=== PATIENT | female | born 1995 | race Caucasian/White ===

== ENCOUNTER → 2020-04-19 | Emergency (ER) | payer OTHER, BC ==
[~2020-04-19] MED LIST: AGM875T PO; AMOX500C2 PO; AMPH30TA2 PO; BENZ0.5T3 PO; BIRTH CONTROL PO; BNZT1T PO; CETI10CA PO; ESCI20TA2 PO; HYDR1TAB8 OP; LTRS15C TOP; NITR-65 PO; PRD10T PO; QTP100T PO; QTP200T PO; TRAZ150T42 PO; TRM50T PO; ZPR20C PO; trinessa
--- NOTE | 2020-04-19 18:57 | NUR ---
Pt reported to registration that pt would not be staying if boyfriend could not come into ED.
== END | disposition left against medical advice (07) ==
LOC: EDUNIT# 18:51 → ER 18:52
DX: R31.9 Hematuria, unspecified (principal); M54.9 Dorsalgia, unspecified

== ENCOUNTER 2020-05-28 00:48 | Emergency (ER) | payer BC, OTHER ==
[~2020-05-28] VITALS: Ht 165 cm; Wt 84.1 kg
[2020-05-28 00:54] VITALS: BP 130/64
[2020-05-28] MEDS ORDERED: ONDA8TAB13 (00:59)
[2020-05-28 01:13] LABS: BILIRUBIN,URINE NEGATIVE (NEGATIVE); CLARITY,URINE SL CLOUDY; COLOR,URINE YELLOW; GLUCOSE, URINE (UA) NEGATIVE (NEGATIVE); KETONES,URINE NEGATIVE (NEGATIVE); LEUKOCYTE ESTERASE ,URINE NEGATIVE (NEGATIVE); NITRITE,URINE NEGATIVE (NEGATIVE); PROTEIN,URINE NEGATIVE (NEGATIVE)
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
[2020-05-28] MEDS ORDERED: ACETAMINOPHEN 500 MG TAB (TYLENOL) PO ONE (01:15)
[2020-05-28 01:19] LABS: BASOPHILS # (AUTO) 0.1 10^3/uL (0.0-0.1); BASOPHILS % (AUTO) 0 % (0-10); EOSINOPHILS # (AUTO) 0.3 10^3/uL (0.0-0.3); EOSINOPHILS % (AUTO) 2 % (0-10); HEMATOCRIT 35 % (35-52); LYMPHOCYTES # (AUTO) 2.6 X 10^3 (1.0-4.0); LYMPHOCYTES % (AUTO) 19 % (12-44); MEAN CORPUSCULAR HEMOGLOBIN 31 PG (25-34); MEAN CORPUSCULAR HGB CONC 34 G/DL (32-36); MEAN CORPUSCULAR VOLUME 90 FL (80-99); MEAN PLATELET VOLUME 10.2 FL (7.4-10.4); MONOCYTES # (AUTO) 0.9 X 10^3 (0.0-1.0); MONOCYTES % (AUTO) 7 % (0-12); NEUTROPHILS # (AUTO) 9.8 X 10^3 (1.8-7.8); NEUTROPHILS % (AUTO) 71 % (42-75); PLATELET COUNT 277 10^3/uL (130-400); RED CELL DISTRIBUTION WIDTH 12.6 % (10.0-14.5); WHITE BLOOD COUNT 13.7 10^3/uL (4.3-11.0)
[2020-05-28 01:27] LABS: BACTERIA,URINE FEW /HPF; RBC,URINE RARE /HPF; SQUAMOUS EPITHELIAL CELL,UR 25-50 /HPF; WBC,URINE RARE /HPF
[2020-05-28 01:36] LABS: ALANINE AMINOTRANSFERASE 20 U/L (0-55); ALBUMIN 3.7 GM/DL (3.2-4.5); ALKALINE PHOSPHATASE 59 U/L (40-136); BILIRUBIN,TOTAL 0.2 MG/DL (0.1-1.0); BUN/CREATININE RATIO 15; CALCIUM 8.7 MG/DL (8.5-10.1); CARBON DIOXIDE 24 MMOL/L (21-32); CHLORIDE 102 MMOL/L (98-107); CREATININE SERUM 0.66 MG/DL (0.60-1.30); GFR ESTIMATED > 60; GLUCOSE 88 MG/DL (70-105); POTASSIUM 3.6 MMOL/L (3.6-5.0); SODIUM 137 MMOL/L (135-145); TOTAL PROTEIN 6.6 GM/DL (6.4-8.2)
== END 2020-05-28 02:18 | disposition home or self-care (01) ==
LOC: EDUNIT# 00:48 → ER 00:52
DX: O26.891 Other specified pregnancy related conditions, first trimester (principal); R10.2 Pelvic and perineal pain; Z3A.08 8 weeks gestation of pregnancy
CPT/HCPCS: 36415; 80053; 81000; 84702; 84703; 85025

== ENCOUNTER 2020-12-22 19:54 | Outpatient (CLI) | payer BC, MEDICAID ==
[~2020-12-22] VITALS: Ht 165.1 cm; Wt 115.6 kg
[~2020-12-22 19:54] MED LIST changes: +ONDA8TAB13
[2020-12-22 20:12] VITALS: BP 140/95
[2020-12-22 20:27] LABS: BILIRUBIN,URINE NEGATIVE (NEGATIVE); CLARITY,URINE CLEAR; COLOR,URINE YELLOW; GLUCOSE, URINE (UA) NEGATIVE (NEGATIVE); KETONES,URINE NEGATIVE (NEGATIVE); LEUKOCYTE ESTERASE ,URINE NEGATIVE (NEGATIVE); NITRITE,URINE NEGATIVE (NEGATIVE); PROTEIN,URINE 3+ (NEGATIVE)
[2020-12-22 20:38] VITALS: BP 131/68
[2020-12-22 20:41] LABS: BACTERIA,URINE NEGATIVE /HPF; SQUAMOUS EPITHELIAL CELL,UR 25-50 /HPF
[2020-12-22 20:42] LABS: AMPHETAMINE SCREEN, URINE POSITIVE (NEGATIVE); BARBITURATE SCREEN URINE NEGATIVE (NEGATIVE); BENZODIAZEPINES SCREEN URINE NEGATIVE (NEGATIVE); CANNABINOID SCREEN, URINE NEGATIVE (NEGATIVE); COCAINE SCREEN URINE NEGATIVE (NEGATIVE); METHADONE STAT NEGATIVE (NEGATIVE); METHAMPHETAMINE SCREEN URINE S POSITIVE (NEGATIVE); OPIATE SCREEN URINE NEGATIVE (NEGATIVE); OXYCODONE STAT NEGATIVE (NEGATIVE); PROPOXYPHENE STAT NEGATIVE (NEGATIVE); TRICYCLIC ANTIDEPRESSANTS SCRE NEGATIVE (NEGATIVE)
[2020-12-22] MEDS ORDERED: FERR-84 PO (20:49)
[2020-12-22] MEDS ORDERED: PREN-142 PO (20:49)
--- NOTE | 2020-12-23 07:45 | Physician Query-Final Dx ---
CHARU DENNISON 12/23/20 0745: Clinic Account Progress/Dx Physician Query: Please give diagnosis Please include # weeks gestation Date of Service Dec 22, 2020 at 19:54 REZA WHITE MD 12/23/20 2208: Clinic Account Progress/Dx DIAGNOSIS: Diagnosis 1. IUP at 38 weeks, non labor 2. Membranes intact CHARU DENNISON Dec 23, 2020 07:45 REZA WHITE MD Dec 23, 2020 22:08
== END 2020-12-22 21:18 | disposition home or self-care (01) ==
LOC: WSo 19:54 → LDRP 19:54 → WSo 21:18
PROVIDERS: ATTEND Family Medicine
DX: O41.8X30 Other specified disorders of amniotic fluid and membranes, third trimester, not applicable or unspecified (principal); Z3A.38 38 weeks gestation of pregnancy
CPT/HCPCS: 80306; 81000

== ENCOUNTER 2020-12-27 02:17 | Inpatient (IN) | payer BC, MEDICAID ==
[~2020-12-27] VITALS: Ht 165.1 cm; Wt 116.5 kg
[2020-12-27] VITALS (38 sets, daily range): BP systolic 99–198; BP diastolic 51–105
[~2020-12-27 02:17] MED LIST changes: +FERR-84 PO; +PREN-142 PO
[2020-12-27 02:42] LABS: BILIRUBIN,URINE 1+ (NEGATIVE); CLARITY,URINE CLOUDY; COLOR,URINE ORANGE; GLUCOSE, URINE (UA) NEGATIVE (NEGATIVE); KETONES,URINE NEGATIVE (NEGATIVE); LEUKOCYTE ESTERASE ,URINE NEGATIVE (NEGATIVE); NITRITE,URINE NEGATIVE (NEGATIVE); PROTEIN,URINE 3+ (NEGATIVE)
[2020-12-27 02:53] LABS: BACTERIA,URINE LARGE /HPF
[2020-12-27 02:54] LABS: AMPHETAMINE SCREEN, URINE POSITIVE (NEGATIVE); BARBITURATE SCREEN URINE NEGATIVE (NEGATIVE); BENZODIAZEPINES SCREEN URINE NEGATIVE (NEGATIVE); CANNABINOID SCREEN, URINE NEGATIVE (NEGATIVE); COCAINE SCREEN URINE NEGATIVE (NEGATIVE); METHADONE STAT NEGATIVE (NEGATIVE); METHAMPHETAMINE SCREEN URINE S POSITIVE (NEGATIVE); OPIATE SCREEN URINE NEGATIVE (NEGATIVE); OXYCODONE STAT NEGATIVE (NEGATIVE); PROPOXYPHENE STAT NEGATIVE (NEGATIVE); TRICYCLIC ANTIDEPRESSANTS SCRE NEGATIVE (NEGATIVE)
[2020-12-27] MEDS ORDERED: LACTATED RINGERS 1,000 ML IV ONE ×2 (03:15→09:45)
[2020-12-27 04:07] LABS: BASOPHILS # (AUTO) 0.1 10^3/uL (0.0-0.1); BASOPHILS % (AUTO) 1 % (0-10); EOSINOPHILS # (AUTO) 0.2 10^3/uL (0.0-0.3); EOSINOPHILS % (AUTO) 2 % (0-10); HEMATOCRIT 34 % (35-52); HEMOGLOBIN 10.9 g/dL (11.5-16.0); LYMPHOCYTES % (AUTO) 18 % (12-44); MEAN CORPUSCULAR HEMOGLOBIN 28 pg (25-34); MEAN CORPUSCULAR HGB CONC 33 g/dL (32-36); MEAN CORPUSCULAR VOLUME 87 fL (80-99); MEAN PLATELET VOLUME 11.8 fL (9.0-12.2); MONOCYTES # (AUTO) 0.9 10^3/uL (0.0-1.0); MONOCYTES % (AUTO) 8 % (0-12); NEUTROPHILS # (AUTO) 7.6 10^3/uL (1.8-7.8); NEUTROPHILS % (AUTO) 70 % (42-75); PLATELET COUNT 253 10^3/uL (130-400); WHITE BLOOD COUNT 10.9 10^3/uL (4.3-11.0)
[2020-12-27 04:18] LABS: ALBUMIN 2.5 GM/DL (3.2-4.5); CHLORIDE 108 MMOL/L (98-107); POTASSIUM 3.8 MMOL/L (3.6-5.0); SODIUM 137 MMOL/L (135-145)
[2020-12-27 04:19] LABS: CALCIUM 8.1 MG/DL (8.5-10.1)
[2020-12-27 04:20] LABS: GLUCOSE 112 MG/DL (70-105); TOTAL PROTEIN 5.1 GM/DL (6.4-8.2)
[2020-12-27 04:21] LABS: CARBON DIOXIDE 20 MMOL/L (21-32)
[2020-12-27 04:22] LABS: BILIRUBIN,TOTAL 0.1 MG/DL (0.1-1.0)
[2020-12-27 04:24] LABS: ALKALINE PHOSPHATASE 243 U/L (40-136); CREATININE SERUM 0.68 MG/DL (0.60-1.30); GFR ESTIMATED > 60
[2020-12-27 04:25] LABS: BUN/CREATININE RATIO 16
[2020-12-27 04:27] LABS: ALANINE AMINOTRANSFERASE 19 U/L (0-55); URIC ACID 5.9 MG/DL (2.6-7.2)
[2020-12-27] MEDS ORDERED: D5 LR IV SOLUTION 1,000 ML IV ONE (04:45)
[2020-12-27] MEDS ORDERED: MINERAL OIL CONCENTRATE 99.9% 15 ML UDC TOP PRN (05:00)
[2020-12-27] MEDS ORDERED: D5 LR IV SOLUTION 1,000 ML IV SCH ×2 (05:00→14:15)
[2020-12-27] MEDS ORDERED: TERBUTALINE INJ 1 MG/ML (BRETHINE) AMP SC PRN (05:00)
[2020-12-27] MEDS ORDERED: fentaNYL INJ 100 MCG/2 ML AMP ONE ×3 (05:05→10:25)
[2020-12-27] MEDS ORDERED: fentaNYL INJ 100 MCG/2 ML AMP IVP PRN ×2 (05:15→14:15)
[2020-12-27] MEDS ORDERED: CATHETER FLUSH 10 ML SYR IV SCH (06:00)
[2020-12-27] MEDS ORDERED: MAGNESIUM 2 GM/50 ML IVPB 0 ML IV ONE (06:18)
[2020-12-27] MEDS ORDERED: MAGNESIUM 4 GM/100 ML IVPB 100 ML IV ONE (06:18)
[2020-12-27] MEDS ORDERED: MAGNESIUM SULFATE DRIP 500 ML IV ONE (06:21)
[2020-12-27] MEDS ORDERED: MAGNESIUM 4 GM/100 ML IVPB 100 ML IV SCH (06:30)
[2020-12-27] MEDS ORDERED: CALCIUM GLUC. 10% 4.65 MEQ/10 ML VIAL IV PRN (06:30)
[2020-12-27] MEDS ORDERED: MAGNESIUM SULFATE DRIP 500 ML IV SCH ×2 (07:00→14:15)
[2020-12-27] MEDS: D5 LR IV SOLUTION 1,000 ML IV SCH ×2 (07:18→16:20)
[2020-12-27] MEDS ORDERED: fentaNYL 2 mcg/ml BUPIVA 0.125 100 ML ONE (09:02)
[2020-12-27] MEDS ORDERED: BUPIVACAINE 0.25% 30 ML (SENSORCAINE) VIAL ONE (09:36)
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
[2020-12-27] MEDS ORDERED: CATHETER FLUSH 10 ML SYR IV PRN (09:45)
[2020-12-27] MEDS ORDERED: fentaNYL 2 mcg/ml BUPIVA 0.125 100 ML IV SCH (09:45)
[2020-12-27] MEDS ORDERED: NALOXONE 0.4 MG/ML 1 ML (NARCAN) VIAL IV PRN (09:45)
[2020-12-27] MEDS ORDERED: METOCLOPRAMIDE INJ 10 MG/2 ML (REGLAN) ONE (10:36)
[2020-12-27] MEDS ORDERED: FAMOTIDINE 20MG/2ML IV (PEPCID) ONE (10:36)
[2020-12-27] MEDS ORDERED: CITRIC ACID/SOB CIT (BICITRA) 30 ML UDC ONE (10:36)
[2020-12-27] MEDS: LACTATED RINGERS 1,000 ML IV PRN ×2 (10:51→16:15)
[2020-12-27] MEDS ORDERED: metroNIDAZOLE 500MG/100ML IVPB 100 ML ONE (10:53)
[2020-12-27] MEDS ORDERED: ceFAZolin 2 GM IV Premixed 50 ML ONE (10:54)
[2020-12-27] MEDS ORDERED: CITRIC ACID/SOB CIT (BICITRA) 30 ML UDC PO ONE (11:00)
[2020-12-27] MEDS ORDERED: FAMOTIDINE 20MG/2ML IV (PEPCID) IV ONE (11:00)
[2020-12-27] MEDS ORDERED: METOCLOPRAMIDE INJ 10 MG/2 ML (REGLAN) IV ONE (11:00)
[2020-12-27] MEDS ORDERED: OXYTOCIN PRE-MIX DRIP 1,000 ML IV ONE (11:03)
[2020-12-27] MEDS ORDERED: ONDANSETRON 4 MG/2 ML (SDV) Z0FRAN ONE (11:49)
[2020-12-27] MEDS ORDERED: HYDROmorphone 2 MG/ML VIAL (DILAUDID) ONE (11:49)
[2020-12-27] MEDS ORDERED: ONDANSETRON 4 MG/2 ML (SDV) Z0FRAN IVP PRN ×2 (12:45→14:15)
[2020-12-27] MEDS ORDERED: KETOROLAC 30 MG/ML VIAL IVP ONE (12:45)
[2020-12-27] MEDS ORDERED: HYDROmorphone 2 MG/ML VIAL (DILAUDID) IV ONE (12:45)
[2020-12-27] MEDS ORDERED: MEASLES,MUMPS,RUBELLA 1 EA INJ SC ONE (14:15)
[2020-12-27] MEDS ORDERED: TETANUS,DIPTH,PERTUSS P/F (BOOSTRIX) 0.5 ML VIAL IM ONE (14:15)
[2020-12-27] MEDS ORDERED: OXYTOCIN PRE-MIX DRIP 500 ML IV SCH (14:15)
[2020-12-27] MEDS: oxyCODONE/APAP 10/325MG (PERCOCET 10) TABLET PO PRN (16:15)
--- NOTE | 2020-12-27 17:01 | OPERATIVE REPORT ---
DATE OF SERVICE: 12/27/2020 PREOPERATIVE DIAGNOSES: Term at 38 and 6/7 weeks' gestation with severe preeclampsia, intolerance of labor and history of drug abuse. POSTOPERATIVE DIAGNOSES: Term at 38 and 6/7 weeks' gestation with severe preeclampsia, intolerance of labor and history of drug abuse. OPERATIVE PROCEDURE: Primary low transverse delivery of viable male infant with Apgars of 8 and 9 at 1 and 5 minutes respectively, weight of 6 pounds 5 ounces. time of 11:35 and a cord blood pH of 7.11. OPERATIVE DESCRIPTION: With the patient in the supine position under satisfactory spinal analgesia, the patient was prepped and draped in the usual fashion for abdominal surgery. Varela catheter was placed in the urinary bladder. A Pfannenstiel incision was made through the skin of the scalpel, the patient's abdomen was entered in the usual manner. Bladder retractor placed in position, clean scalpel used to make a 4 cm hysterotomy incision transversely across the lower uterine segment that was extended by blunt dissection as well. Solis forceps were applied to facilitate delivery of a viable male . Infant had Apgars and stats as noted above. The infant was bulb suctioned on delivery of the head and again on completion of delivery. The umbilical cord was doubly clamped and the infant passed to the pediatric nurse in attendance for delivery. Cord bloods were obtained. Placenta delivered spontaneously Alcantar. It was normal with a 3-vessel cord. The uterus was exteriorized and interior wiped clean with a wet laparotomy sponge. Uterine incision closed with running locked suture of 2-0 Vicryl. Hemostasis was complete. The uterus was returned to abdominal cavity. All blood clot and debris removed from the abdominal cavity. Sponge and needle counts correct, hemostasis assured. The anterior parietal peritoneum was closed with running suture of 2-0 Vicryl. Rectus muscles were closed with that suture as well. The rectus fascia was closed with 2-0 Vicryl, subcutaneous tissue was closed with 2-0 Vicryl and the skin was stapled. Sponge and needle counts were correct on completion of procedure. Estimated blood loss was around 400 mL. The patient tolerated the procedure well and was transferred to the recovery room in stable condition. The infant had been taken stable to the full term nursery under the care of the pediatric nurse and Dr. Shetty, the investment professional. Job ID: [id number] DocumentID: [id number] Dictated Date: 12/27/2020 12:33:10 Billet Examiner Date: 12/27/2020 16:59:55 Dictated By: EMILY CASILLAS MD
[2020-12-27 18:22] LABS: BASOPHILS # (AUTO) 0.1 10^3/uL (0.0-0.1); BASOPHILS % (AUTO) 0 % (0-10); EOSINOPHILS # (AUTO) 0.2 10^3/uL (0.0-0.3); EOSINOPHILS % (AUTO) 1 % (0-10); HEMATOCRIT 36 % (35-52); HEMOGLOBIN 11.6 g/dL (11.5-16.0); LYMPHOCYTES # (AUTO) 1.6 10^3/uL (1.0-4.0); LYMPHOCYTES % (AUTO) 10 % (12-44); MEAN CORPUSCULAR HEMOGLOBIN 28 pg (25-34); MEAN CORPUSCULAR HGB CONC 32 g/dL (32-36); MEAN CORPUSCULAR VOLUME 87 fL (80-99); MEAN PLATELET VOLUME 11.6 fL (9.0-12.2); MONOCYTES % (AUTO) 6 % (0-12); NEUTROPHILS # (AUTO) 14.1 10^3/uL (1.8-7.8); NEUTROPHILS % (AUTO) 83 % (42-75); PLATELET COUNT 255 10^3/uL (130-400); WHITE BLOOD COUNT 17.1 10^3/uL (4.3-11.0)
[2020-12-27 18:33] LABS: ALBUMIN 2.3 GM/DL (3.2-4.5); CHLORIDE 108 MMOL/L (98-107); SODIUM 137 MMOL/L (135-145)
[2020-12-27 18:35] LABS: GLUCOSE 112 MG/DL (70-105)
[2020-12-27 18:36] LABS: TOTAL PROTEIN 4.8 GM/DL (6.4-8.2)
[2020-12-27 18:37] LABS: CARBON DIOXIDE 21 MMOL/L (21-32)
[2020-12-27 18:38] LABS: BILIRUBIN,TOTAL 0.2 MG/DL (0.1-1.0); NEUTROPHILS % (MANUAL) 88 %
[2020-12-27 18:39] LABS: ALKALINE PHOSPHATASE 230 U/L (40-136); BAND NEUTROPHILS 4 %; CREATININE SERUM 0.61 MG/DL (0.60-1.30); GFR ESTIMATED > 60; LYMPHOCYTES % (MANUAL) 7 %; MONOCYTES % (MANUAL) 1 %; RBC MORPH NORMAL
[2020-12-27 18:40] LABS: BUN/CREATININE RATIO 11
[2020-12-27 18:42] LABS: ALANINE AMINOTRANSFERASE 18 U/L (0-55)
[2020-12-27] MEDS: KETOROLAC 30 MG/ML VIAL IVP SCH ×2 (20:15→21:15)
[2020-12-27] MEDS ORDERED: DOCUSATE SODIUM 100 MG (COLACE) CAP PO SCH (21:00)
[2020-12-27] MEDS: DOCUSATE SODIUM 100 MG (COLACE) CAP PO SCH (21:20)
[2020-12-28 00:20] VITALS: BP 154/90
[2020-12-28] MEDS: oxyCODONE/APAP 10/325MG (PERCOCET 10) TABLET PO PRN ×3 (00:26→21:40)
[2020-12-28 03:55] VITALS: BP 153/80
[2020-12-28] MEDS: KETOROLAC 30 MG/ML VIAL IVP SCH (03:56)
--- NOTE | 2020-12-28 06:41 | Progress Note ---
Standard Progress Note Progress Notes/Assess & Plan Date Seen by a Provider: Dec 28, 2020 Time Seen by a Provider: 06:40 Progress/Assessment & Plan This patient is without complaint. She is ambulating, voiding, tolerating oral intake well and has good pain control. Vital Signs Date Time Temp Pulse Resp B/P (MAP) Pulse Ox O2 Delivery O2 Flow Rate FiO2 12/28/20 03:55 36.5 79 153/80 (104) 99 Room Air 12/28/20 00:20 93 154/90 (111) 99 Room Air 12/27/20 23:58 36.6 93 18 160/105 (123) 100 Room Air 12/27/20 21:00 98 Room Air 12/27/20 20:33 36.6 104 20 135/85 (102) 98 Room Air 12/27/20 18:00 36.7 105 18 149/90 (109) 100 Room Air 12/27/20 17:00 89 18 153/90 (111) 98 Room Air 12/27/20 16:00 82 18 151/89 (109) 98 Room Air 12/27/20 15:00 80 18 143/85 (104) Room Air 12/27/20 14:00 67 16 143/95 (111) Room Air 12/27/20 13:49 72 16 141/87 (105) Room Air 12/27/20 13:25 36.4 14 115/75 (88) 94 Room Air 12/27/20 13:25 36.1 63 18 151/81 (104) 97 Room Air 12/27/20 13:25 Room Air 12/27/20 13:20 14 115/75 (88) 94 Room Air 12/27/20 13:15 Room Air 12/27/20 13:10 14 119/91 (100) 99 Room Air 12/27/20 13:00 16 121/75 (90) 99 Room Air 12/27/20 13:00 Room Air 12/27/20 12:50 18 116/71 (86) 99 Room Air 12/27/20 12:45 Room Air 12/27/20 12:40 22 99/60 (73) 98 Room Air 12/27/20 12:31 36.2 16 112/51 (71) 99 Room Air 12/27/20 12:31 Room Air 12/27/20 10:55 90 18 151/74 (99) Room Air 12/27/20 10:45 36.2 96 18 138/75 (96) Room Air 12/27/20 10:25 96 18 151/81 (104) Room Air 12/27/20 10:15 92 18 144/74 (97) Room Air 12/27/20 10:00 117 18 198/89 (125) 100 Room Air 12/27/20 09:40 83 18 173/79 (110) 98 Room Air 12/27/20 09:25 75 18 182/84 (116) 97 Room Air 12/27/20 09:10 90 18 142/71 (94) Room Air 12/27/20 08:55 100 18 145/90 (108) Room Air 12/27/20 08:10 88 18 151/83 (105) 99 Room Air 12/27/20 08:05 36.7 12/27/20 07:55 89 18 160/89 (112) 99 Room Air 12/27/20 07:40 85 18 149/81 (103) 99 Room Air 12/27/20 07:30 81 18 155/90 (111) 97 Room Air 12/27/20 07:15 91 18 136/69 (91) 98 Room Air 12/27/20 07:00 97 18 162/77 (105) 97 Room Air 12/27/20 06:45 93 18 153/72 (99) 98 Room Air I & O 12/28/20 07:00 Intake Total 4550 ml Output Total 450 ml Balance 4100 ml Lab work is as follows Laboratory Tests Test 12/27/20 18:15 Range/Units White Blood Count 17.1 H 4.3-11.0 10^3/uL Red Blood Count 4.12 3.80-5.11 10^6/uL Hemoglobin 11.6 11.5-16.0 g/dL Hematocrit 36 35-52 % Mean Corpuscular Volume 87 80-99 fL Mean Corpuscular Hemoglobin 28 25-34 pg Mean Corpuscular Hemoglobin Concent 32 32-36 g/dL Red Cell Distribution Width 17.0 H 10.0-14.5 % Platelet Count 255 130-400 10^3/uL Mean Platelet Volume 11.6 9.0-12.2 fL Immature Granulocyte % (Auto) 1 % Neutrophils (%) (Auto) 83 H 42-75 % Lymphocytes (%) (Auto) 10 L 12-44 % Monocytes (%) (Auto) 6 0-12 % Eosinophils (%) (Auto) 1 0-10 % Basophils (%) (Auto) 0 0-10 % Neutrophils # (Auto) 14.1 H 1.8-7.8 10^3/uL Lymphocytes # (Auto) 1.6 1.0-4.0 10^3/uL Monocytes # (Auto) 1.0 0.0-1.0 10^3/uL Eosinophils # (Auto) 0.2 0.0-0.3 10^3/uL Basophils # (Auto) 0.1 0.0-0.1 10^3/uL Immature Granulocyte # (Auto) 0.2 H 0.0-0.1 10^3/uL Neutrophils % (Manual) 88 % Lymphocytes % (Manual) 7 % Monocytes % (Manual) 1 % Band Neutrophils 4 % Blood Morphology Comment NORMAL Sodium Level 137 135-145 MMOL/L Potassium Level 4.0 3.6-5.0 MMOL/L Chloride Level 108 H 98-107 MMOL/L Carbon Dioxide Level 21 21-32 MMOL/L Anion Gap 8 5-14 MMOL/L Blood Urea Nitrogen 7 7-18 MG/DL Creatinine 0.61 0.60-1.30 MG/DL Estimat Glomerular Filtration Rate > 60 BUN/Creatinine Ratio 11 Glucose Level 112 H 70-105 MG/DL Calcium Level 7.0 L 8.5-10.1 MG/DL Corrected Calcium 8.4 L 8.5-10.1 MG/DL Total Bilirubin 0.2 0.1-1.0 MG/DL Aspartate Amino Transf (AST/SGOT) 22 5-34 U/L Alanine Aminotransferase (ALT/SGPT) 18 0-55 U/L Alkaline Phosphatase 230 H 40-136 U/L Lactate Dehydrogenase 280 H 125-220 U/L Total Protein 4.8 L 6.4-8.2 GM/DL Albumin 2.3 L 3.2-4.5 GM/DL Vital signs are stable. Patient is afebrile. Blood pressures are normalizing. The abdomen is benign. The surgical incision is clean dry and intact. Extremities show no clubbing or cyanosis. There is no Homans' sign. Assessment and plan postoperative day #1 status post primary delivery for severe preeclampsia and intolerance of labor. Patient is doing well and will have routine convalescent care. Close attention is given to her blood pressures EMILY CASILLAS MD Dec 28, 2020 06:41
[2020-12-28] MEDS ORDERED: IBUPROFEN 800 MG (MOTRIN) TAB PO ONE (09:30)
[2020-12-28] MEDS: DOCUSATE SODIUM 100 MG (COLACE) CAP PO SCH ×2 (09:38→21:38)
[2020-12-28] MEDS: IBUPROFEN 800 MG (MOTRIN) TAB PO SCH ×3 (09:38→21:39)
[2020-12-28 09:41] VITALS: BP 149/81
--- NOTE | 2020-12-28 10:53 | Anesthesia-Regional Post-Op ---
Regional Patient Condition Mental Status: Alert, Oriented x3 Circulation: Same as Pre-Op Headache: Absent Sensation: Full Recovery Motor Block: Absent Post Op Complications Complications None Follow Up Care/Instructions Patient Instructions None needed. Anesthesia/Patient Condition Patient is doing well, no complaints, stable vital signs, no apparent adverse anesthesia problems. No complications reported per nursing. D/C home per [facility] Criteria: KYRA Steiner CRNA Dec 28, 2020 10:53
[2020-12-28 15:43] VITALS: BP 150/96
[2020-12-28 21:40] VITALS: BP 161/77
[2020-12-28 22:16] VITALS: BP 144/74
[2020-12-29] MEDS: IBUPROFEN 800 MG (MOTRIN) TAB PO SCH ×2 (04:43→11:06)
[2020-12-29] MEDS: oxyCODONE/APAP 10/325MG (PERCOCET 10) TABLET PO PRN ×2 (04:44→18:22)
[2020-12-29 05:24] VITALS: BP 177/93
[2020-12-29 05:25] VITALS: BP 167/83
[2020-12-29] MEDS ORDERED: LABETALOL 200 MG (NORMODYNE) TAB PO ONE (05:37)
[2020-12-29 06:47] VITALS: BP 141/94
--- NOTE | 2020-12-29 07:45 | Progress Note ---
Standard Progress Note Progress Notes/Assess & Plan Date Seen by a Provider: Dec 29, 2020 Time Seen by a Provider: 07:44 Progress/Assessment & Plan This patient is without complaint. She is ambulating, voiding, tolerating oral intake well and has good pain control. Vital Signs Date Time Temp Pulse Resp B/P (MAP) Pulse Ox O2 Delivery O2 Flow Rate FiO2 12/28/20 03:55 36.5 79 153/80 (104) 99 Room Air 12/28/20 00:20 93 154/90 (111) 99 Room Air 12/27/20 23:58 36.6 93 18 160/105 (123) 100 Room Air 12/27/20 21:00 98 Room Air 12/27/20 20:33 36.6 104 20 135/85 (102) 98 Room Air 12/27/20 18:00 36.7 105 18 149/90 (109) 100 Room Air 12/27/20 17:00 89 18 153/90 (111) 98 Room Air 12/27/20 16:00 82 18 151/89 (109) 98 Room Air 12/27/20 15:00 80 18 143/85 (104) Room Air 12/27/20 14:00 67 16 143/95 (111) Room Air 12/27/20 13:49 72 16 141/87 (105) Room Air 12/27/20 13:25 36.4 14 115/75 (88) 94 Room Air 12/27/20 13:25 36.1 63 18 151/81 (104) 97 Room Air 12/27/20 13:25 Room Air 12/27/20 13:20 14 115/75 (88) 94 Room Air 12/27/20 13:15 Room Air 12/27/20 13:10 14 119/91 (100) 99 Room Air 12/27/20 13:00 16 121/75 (90) 99 Room Air 12/27/20 13:00 Room Air 12/27/20 12:50 18 116/71 (86) 99 Room Air 12/27/20 12:45 Room Air 12/27/20 12:40 22 99/60 (73) 98 Room Air 12/27/20 12:31 36.2 16 112/51 (71) 99 Room Air 12/27/20 12:31 Room Air 12/27/20 10:55 90 18 151/74 (99) Room Air 12/27/20 10:45 36.2 96 18 138/75 (96) Room Air 12/27/20 10:25 96 18 151/81 (104) Room Air 12/27/20 10:15 92 18 144/74 (97) Room Air 12/27/20 10:00 117 18 198/89 (125) 100 Room Air 12/27/20 09:40 83 18 173/79 (110) 98 Room Air 12/27/20 09:25 75 18 182/84 (116) 97 Room Air 12/27/20 09:10 90 18 142/71 (94) Room Air 12/27/20 08:55 100 18 145/90 (108) Room Air 12/27/20 08:10 88 18 151/83 (105) 99 Room Air 12/27/20 08:05 36.7 12/27/20 07:55 89 18 160/89 (112) 99 Room Air 12/27/20 07:40 85 18 149/81 (103) 99 Room Air 12/27/20 07:30 81 18 155/90 (111) 97 Room Air 12/27/20 07:15 91 18 136/69 (91) 98 Room Air 12/27/20 07:00 97 18 162/77 (105) 97 Room Air 12/27/20 06:45 93 18 153/72 (99) 98 Room Air I & O 12/28/20 07:00 Intake Total 4550 ml Output Total 450 ml Balance 4100 ml Lab work is as follows Laboratory Tests Test 12/27/20 18:15 Range/Units White Blood Count 17.1 H 4.3-11.0 10^3/uL Red Blood Count 4.12 3.80-5.11 10^6/uL Hemoglobin 11.6 11.5-16.0 g/dL Hematocrit 36 35-52 % Mean Corpuscular Volume 87 80-99 fL Mean Corpuscular Hemoglobin 28 25-34 pg Mean Corpuscular Hemoglobin Concent 32 32-36 g/dL Red Cell Distribution Width 17.0 H 10.0-14.5 % Platelet Count 255 130-400 10^3/uL Mean Platelet Volume 11.6 9.0-12.2 fL Immature Granulocyte % (Auto) 1 % Neutrophils (%) (Auto) 83 H 42-75 % Lymphocytes (%) (Auto) 10 L 12-44 % Monocytes (%) (Auto) 6 0-12 % Eosinophils (%) (Auto) 1 0-10 % Basophils (%) (Auto) 0 0-10 % Neutrophils # (Auto) 14.1 H 1.8-7.8 10^3/uL Lymphocytes # (Auto) 1.6 1.0-4.0 10^3/uL Monocytes # (Auto) 1.0 0.0-1.0 10^3/uL Eosinophils # (Auto) 0.2 0.0-0.3 10^3/uL Basophils # (Auto) 0.1 0.0-0.1 10^3/uL Immature Granulocyte # (Auto) 0.2 H 0.0-0.1 10^3/uL Neutrophils % (Manual) 88 % Lymphocytes % (Manual) 7 % Monocytes % (Manual) 1 % Band Neutrophils 4 % Blood Morphology Comment NORMAL Sodium Level 137 135-145 MMOL/L Potassium Level 4.0 3.6-5.0 MMOL/L Chloride Level 108 H 98-107 MMOL/L Carbon Dioxide Level 21 21-32 MMOL/L Anion Gap 8 5-14 MMOL/L Blood Urea Nitrogen 7 7-18 MG/DL Creatinine 0.61 0.60-1.30 MG/DL Estimat Glomerular Filtration Rate > 60 BUN/Creatinine Ratio 11 Glucose Level 112 H 70-105 MG/DL Calcium Level 7.0 L 8.5-10.1 MG/DL Corrected Calcium 8.4 L 8.5-10.1 MG/DL Total Bilirubin 0.2 0.1-1.0 MG/DL Aspartate Amino Transf (AST/SGOT) 22 5-34 U/L Alanine Aminotransferase (ALT/SGPT) 18 0-55 U/L Alkaline Phosphatase 230 H 40-136 U/L Lactate Dehydrogenase 280 H 125-220 U/L Total Protein 4.8 L 6.4-8.2 GM/DL Albumin 2.3 L 3.2-4.5 GM/DL Vital signs are stable. Patient is afebrile. Blood pressures are normalizing. The abdomen is benign. The surgical incision is clean dry and intact. Extremities show no clubbing or cyanosis. There is no Homans' sign. Assessment and plan postoperative day #1 status post primary delivery for severe preeclampsia and intolerance of labor. Patient is doing well and will have routine convalescent care. Close attention is given to her blood pressures December 29, 2020 This patient is without complaint. She is ambulating, voiding, tolerating oral intake well and has good pain control. She is requesting discharge home. Vital Signs Date Time Temp Pulse Resp B/P (MAP) Pulse Ox O2 Delivery O2 Flow Rate FiO2 12/29/20 06:47 85 18 141/94 (110) 12/29/20 05:25 18 167/83 (111) 12/29/20 05:24 36.8 18 177/93 (121) 98 Room Air 12/28/20 22:16 18 144/74 (97) 12/28/20 21:40 36.6 97 18 161/77 (105) 97 Room Air 12/28/20 15:43 37.1 106 18 150/96 (114) Room Air 12/28/20 13:30 Room Air 12/28/20 09:41 36.6 100 18 149/81 (103) 99 Room Air Vital signs are stable. Patient is afebrile. Blood pressures are somewhat elevated and she has been started on labetalol Fundus is firm below the umbilicus and nontender. Incision is clean dry and intact. Extremities show no clubbing cyanosis. There is no Homans' sign. Assessment and plan postoperative day #2 status post primary delivery doing well. Patient has some persistently elevated blood pressure we have started her on labetalol she will follow up with Dr. Chan in clinic for care and pressure medicine Final Diagnosis Primary delivery EMILY CASILLAS MD Dec 29, 2020 07:45
[2020-12-29] MEDS ORDERED: DCS100C PO (07:47)
[2020-12-29] MEDS ORDERED: OXYC1TAB12 PO (07:47)
[2020-12-29] MEDS ORDERED: LABE200T7 PO (07:47)
[2020-12-29] MEDS ORDERED: IBUP-1780 PO (07:47)
--- NOTE | 2020-12-29 07:48 | Discharge Inst-Surgical ---
Discharge Inst-Surgical Depart Medication/Instructions New, Converted or Re-Newed RX: RX on Chart Consults/Follow Up Patient Instructions: As directed Orders & Referrals Follow Up Appt: RTC 1 week for incision check with Dr. Riley. Call to make follow up appt. for patient in 6 weeks With your PCP Wound Care: Remove janki, apply benzoin and steri strips. Activity Per routine post instructions. Please call in RX to patient pharmacy. Diet as tolerated Patient may shower or tub bathe as desired. Continue home meds Activity Activity as Tolerated: No Diet Discharge Diet: No Restrictions EMILY IRLEY MD Dec 29, 2020 07:48
[2020-12-29 08:15] VITALS: BP 145/84
[2020-12-29] MEDS: DOCUSATE SODIUM 100 MG (COLACE) CAP PO SCH (08:16)
[2020-12-29] MEDS ORDERED: LABETALOL 200 MG (NORMODYNE) TAB PO SCH (09:00)
[2020-12-29 14:16] VITALS: BP 142/68
[2021-01-01] MEDS ORDERED: IBUPROFEN 800 MG (MOTRIN) TAB PO SCH (14:15)
== END 2020-12-29 18:30 | disposition home or self-care (01) | DRG 788 ==
LOC: WSo 02:17 → LDRP 02:19 → WSo 04:44 → LDRP 04:45
PROVIDERS: ADMIT Family Medicine; ATTEND Obstetrics & Gynecology
PROC: 3E0P7VZ Introduction of Hormone into Female Reproductive, Via Natural or Artificial Opening (ICD-10-PCS; 2020-12-27)
PROC: 10D00Z1 Extraction of Products of Conception, Low, Open Approach (ICD-10-PCS; principal; 2020-12-27 11:17)
DX: O14.14 Severe pre-eclampsia complicating childbirth (principal); Z3A.38 38 weeks gestation of pregnancy; Z37.0 Single live birth; O99.323 Drug use complicating pregnancy, third trimester; F15.10 Other stimulant abuse, uncomplicated; Z87.81 Personal history of (healed) traumatic fracture
CPT/HCPCS: 36415; 80053; 80306; 81000; 82570; 83615; 84156; 84550; 85007; 85025; 85027; 86850; 86900; 86901; 87088; 94664

== ENCOUNTER 2022-01-28 05:02 | Emergency (ER) | payer BC, MEDICAID ==
[~2022-01-28] VITALS: Ht 165 cm; Wt 95.0 kg
[~2022-01-28 05:02] MED LIST changes: +DOCU-239 PO; +IBUP-1780 PO; +LABE200T7 PO; +OXYC1TAB12 PO
[2022-01-28 05:13] VITALS: BP 129/92
[2022-01-28] MEDS ORDERED: AUGMENTIN 875 MG TAB (AMOXICILLIN/CLAVULANATE) PO STA (05:16)
--- NOTE | 2022-01-28 05:19 | ED EENT ---
History of Present Illness General Chief Complaint: Ear Problems Stated Complaint: EAR ACHE Nursing Triage Note: pt presents with right ear pain that started two hours before arrival Source: patient History of Present Illness Date Seen by Provider: Jan 28, 2022 Time Seen by Provider: 05:06 Initial Comments 26-year-old female presenting with complaints of severe right ear pain that started approximately 2 hours prior to arrival. She is G2, P1 and has an estimated gestational age of 7 months. She recently developed pinkeye and upper respiratory symptoms. Her son had been sick and she thinks she picked up the infection from him. She was seen in urgent care yesterday and they started her on eyedrops as well as a nasal steroid. However overnight she developed severe pain to the right ear. She did take Tylenol at home but it did not help. She denies fever or chills. She has had no nausea or vomiting. She is tearful due to the pain. Timing/Duration: abrupt Severity: severe Location: ear (R) Prearrival Treatment: over the counter meds Modifying Factors: Worse With Coughing Associated Symptoms: change in hearing (Decreased hearing from the right ear), cough; No drooling, No ear drainage, No facial pain/swelling, No fever; malaise, nasal congestion/drainage; No poor fluid intake, No poor solids intake, No sinus infection, No sore throat, No tooth pain, No voice change Allergies and Home Medications Allergies Coded Allergies: No Known Drug Allergies (Unverified , 02/16/13) Patient Home Medication List Home Medication List Reviewed: Yes Amoxicillin/Potassium Clav (Amox Tr-K Clv 875-125 mg Tab) 875 Mg-125 Mg Tablet, 1 EACH PO BID Prescribed by: JEFFREY BAUMANN on 01/28/22 0538 Docusate Sodium (Dok) 100 Mg Capsule, 100 MG PO BID Prescribed by: EMILY CORDOVA on 12/29/20 0747 Ferrous Sulfate (Iron) 325 Mg Tablet, 325 MG PO DAILY, (Reported) Entered as Reported by: JOEY SIDDIQI on 12/22/202048 Hydrocodone/Acetaminophen (Hydrocodone-Acetamin 5-325 mg) 5 Mg-325 Mg Tablet, 1 TAB PO Q4H PRN for PAIN-SEVERE (8-10) Prescribed by: JEFFREY BAUMANN on 01/28/22 0538 Ibuprofen (Ibuprofen) 800 Mg Tablet, 800 MG PO Q6H Prescribed by: EMILY CORDOVA on 12/29/20 0747 Labetalol HCl (Labetalol HCl) 200 Mg Tablet, 100 MG PO BID Prescribed by: EMILY CORDOVA on 12/29/20 0747 Oxycodone HCl/Acetaminophen (Percocet 10-325 mg Tablet) 1 Each Tablet, 1 TAB PO Q4HR PRN for PAIN-MODERATE (5-7) Prescribed by: EMILY CORDOVA on 12/29/20 0747 Vit No.124/Iron/FA ( Vitamin Tablet) 1 Each Tablet, 1 EACH PO DAILY, (Reported) Entered as Reported by: JOEY SIDDIQI on 12/22/202048 Review of Systems Review of Systems Constitutional: No chills, No fever Eyes: No Symptoms Reported Ears: See HPI, Pain (Right ear pain); Denies Tinnitus, Denies Bloody Discharge, Denies Clear Discharge, Denies Purulent Discharge, Denies Serosanguinous Discharge, Denies Previous Injury Nose: congestion; denies epistaxis, denies bloody discharge; clear discharge Mouth: no symptoms reported Throat: no symptoms reported Respiratory: cough Cardiovascular: no symptoms reported Gastrointestinal: no symptoms reported Musculoskeletal: no symptoms reported Skin: No rash Neurological: Anxiety Past Xtbqfzl-Hxyiyf-Udtzkd Hx Patient Social History Tobacco Use?: Yes Use of E-Cig and/or Vaping Dat: Current Everyday User Substance use?: No Alcohol Use?: No Immunizations Up To Date Tetanus Booster (TDap): Less than 5yrs Seasonal Allergies Seasonal Allergies: No Past Medical History Surgeries: Yes (DENTAL) Respiratory: Yes Asthma Cardiac: No Neurological: No Reproductive Disorders: No Sexually Transmitted Disease: No HIV/AIDS: No Genitourinary: No Gastrointestinal: No Musculoskeletal: No Endocrine: No HEENT: No Cancer: No Psychosocial: Yes ADD/ADHD, Anxiety, Depression Integumentary: No Blood Disorders: No Adverse Reaction/Blood Tranf: No Family Medical History Cardiovascular disease No Pertinent Family Hx Physical Exam Vital Signs Vital Signs - First Documented 01/28/22 05:13 Temp 37.1 Pulse 102 Resp 20 B/P (MAP) 129/92 (104) Pulse Ox 98 O2 Delivery Room Air Height, Weight, BMI Height: 5'5" Weight: 220lbs. oz. [id number]; 34.00 BMI Method:Stated General Appearance: moderate distress (Crying with pain and holding her right ear) Eyes: bilateral eye PERRL, bilateral eye EOMI Ears: right ear tenderness, right ear TM dull, right ear TM red, right ear TM bulging; bilateral ear auricle normal, bilateral ear canal normal Nose: discharge (Clear nasal drainage) Mouth/Throat: pharynx normal Neck: non-tender, full range of motion, supple Cardiovascular: normal peripheral pulses, regular rate, rhythm Respiratory: chest non-tender, lungs clear, normal breath sounds, no respiratory distress, no accessory muscle use Neurologic/Psychiatric: alert, oriented x 3 Skin: warm/dry Progress/Results/Core Measures Results/Orders My Orders Orders - JEFFREY BAUMANN MD Amoxicillin/Clavulanate Tablet (Augmenti (01/28/22 05:16) Rx-Hydrocodone/Apap 5-325 Mg (Rx-Vicodin (01/28/22 05:30) Lidocaine 1% Inj 20 Ml (Xylocaine 1% Inj (01/28/22 05:30) Medications Given in ED Current Medications Medications Dose Ordered Sig/Ten Route Start Time Stop Time Status Last Admin Dose Admin Acetaminophen/ Hydrocodone Bitart 1 ea Q4H PRN PO 01/28/22 05:30 01/28/22 05:43 DC 01/28/22 05:25 1 EA Vital Signs/I&O 01/28/22 05:13 Temp 37.1 Pulse 102 Resp 20 B/P (MAP) 129/92 (104) Pulse Ox 98 O2 Delivery Room Air Blood Pressure Mean: 104 Progress Progress Note : Progress Note With sudden onset of severe pain to her right ear and signs of illness with effu elizabeth and erythema to the right ear will start on an antibiotic. We will give a few hydrocodone for severe pain. While in the ED we will try instilling 1 mL of 1% lidocaine in the external auditory canal to try and help numb the right ear. Counseled on follow-up and return precautions. Advised to check back with her OB doctor or her primary care doctor if having continued problems. Try applying heat over the ear to help with the pain. Departure Impression Primary Impression: Acute suppurative otitis media of right ear without spontaneous rupture of tympanic membrane Qualified Codes: H66.001 - Acute suppurative otitis media without spontaneous rupture of ear drum, right ear Additional Impressions: Otalgia of right ear Upper respiratory infection with cough and congestion Disposition: 01 HOME, SELF-CARE Condition: Stable Departure-Patient Inst. Decision time for Depature: 05:31 Referrals: REZA WHITE MD (PCP/Family) Primary Care Physician Patient Instructions: Ear Infections (Otitis Media) in Adults (DC), Fluid in the Ear ED Add. Discharge Instructions: Take full course of antibiotics to treat for possible bacterial source of inf ection causing ear infection and pain. May use the Hydrocodone for severe pain. Each pill has 325 mg of Acetaminophen (Tylenol) so make sure that you do not take more than 3,000 mg of Acetaminophen in a 24 hour period. Try a hot pack over your ear for 5-10 minutes every 1-2 hours as needed to try and help with pain Continue with eye drops and nasal steroid. Check with your regular provider or OB doctor for continued concerns All discharge instructions reviewed with patient and/or family. Voiced unders tanding. Scripts Hydrocodone/Acetaminophen (Hydrocodone-Acetamin 5-325 mg) 5 Mg-325 Mg Tablet 1 TAB PO Q4H PRN for PAIN-SEVERE (8-10) for 3 Days, #15 TAB 0 Refills Prov: JEFFREY BAUMANN MD 01/28/22 Amoxicillin/Potassium Clav (Amox Tr-K Clv 875-125 mg Tab) 875 Mg-125 Mg Tablet 1 EACH PO BID for Ear Infection for 7 Days, #14 TAB 0 Refills Prov: JEFFREY BAUMANN MD 01/28/22 JEFFREY BAUMANN MD Jan 28, 2022 05:19
[2022-01-28] MEDS ORDERED: LIDOCAINE 1% INJ 20 ML VIAL TOP STA (05:30)
[2022-01-28] MEDS ORDERED: ACHD5005 PO ×2 (05:36→05:38)
[2022-01-28] MEDS ORDERED: AMOX1TAB12 PO ×2 (05:36→05:38)
== END 2022-01-28 05:43 | disposition home or self-care (01) ==
LOC: EDUNIT# 05:02 → ER FS 05:04
DX: H66.001 Acute suppurative otitis media without spontaneous rupture of ear drum, right ear (principal); J06.9 Acute upper respiratory infection, unspecified; F17.290 Nicotine dependence, other tobacco product, uncomplicated
CPT/HCPCS: 99283

== ENCOUNTER 2022-02-23 01:47 | Emergency (ER) | payer BC, MEDICAID ==
[~2022-02-23 01:47] MED LIST changes: +ACHD5005 PO; +AMOX1TAB12 PO
[2022-02-23 02:08] VITALS: BP 133/86
[2022-02-23] MEDS ORDERED: ACHD5005 PO (02:11)
--- NOTE | 2022-02-23 02:12 | ED Lower Extremity ---
General Chief Complaint: Lower Extremity Stated Complaint: LEFT FOOT INJURY Nursing Triage Note: Pt broke her foot yesterday and had a splint placed in [place]. Pt states she tried to cover the cast with a bag while showering and the splint got wet and fell apart. Pt presents tonight to get a new splint put on her left foot Source: patient Exam Limitations: no limitations History of Present Illness Date Seen by Provider: February 23, 2022 Time Seen by Provider: 01:48 Initial Comments 26-year-old female that is her third trimester of coming in because she broke her foot yesterday, was splinted, and took a shower today making the splint disintegrate. She came in to see if he could be resplinted. This was done in [place] yesterday. She was told she has a Lopez fracture and would need surgery. Pain is constant, throbbing, worse with any type of movement, better with rest. Has been taking Tylenol which has been helping. She also notes that since being on crutches, her hemorrhoids have worsened and they are causing more severe pain and then the fracture currently. Allergies and Home Medications Allergies Coded Allergies: No Known Drug Allergies (Unverified , 02/16/13) Patient Home Medication List Home Medication List Reviewed: Yes Amoxicillin/Potassium Clav (Amox Tr-K Clv 875-125 mg Tab) 875 Mg-125 Mg Tablet, 1 EACH PO BID Prescribed by: JEFFREY BAUMANN on 01/28/22537 Docusate Sodium (Dok) 100 Mg Capsule, 100 MG PO BID Prescribed by: EMILY CORDOVA on 12/29/20 0744 Ferrous Sulfate (Iron) 325 Mg Tablet, 325 MG PO DAILY, (Reported) Entered as Reported by: JOEY SIDDIQI on 12/22/202048 Hydrocodone/Acetaminophen (Hydrocodone-Acetamin 5-325 mg) 5 Mg-325 Mg Tablet, 1 TAB PO Q4H PRN for PAIN-SEVERE (8-10) Prescribed by: JEFFREY BAUMANN on 01/28/22 05 Ibuprofen (Ibuprofen) 800 Mg Tablet, 800 MG PO Q6H Prescribed by: EMILY CORDOVA on 12/29/20 0777 Labetalol HCl (Labetalol HCl) 200 Mg Tablet, 100 MG PO BID Prescribed by: EMILY CORDOVA on 12/29/20 0747 Oxycodone HCl/Acetaminophen (Percocet 10-325 mg Tablet) 1 Each Tablet, 1 TAB PO Q4HR PRN for PAIN-MODERATE (5-7) Prescribed by: EMILY CORDOVA on 12/29/20746 Vit No.124/Iron/FA ( Vitamin Tablet) 1 Each Tablet, 1 EACH PO DAILY, (Reported) Entered as Reported by: JOEY SIDDIQI on 12/22/202048 Review of Systems Constitutional: No chills, No fever EENTM: No blurred vision Respiratory: no symptoms reported Cardiovascular: no symptoms reported Gastrointestinal: other (hemorrhoids) Genitourinary: no symptoms reported Musculoskeletal: joint pain Skin: no symptoms reported Psychiatric/Neurological: No Symptoms Reported All Other Systems Reviewed Negative Unless Noted: Yes Past Jnanoty-Cmqoct-Xccnuv Hx Patient Social History Tobacco Use?: No Immunizations Up To Date Tetanus Booster (TDap): Less than 5yrs Seasonal Allergies Seasonal Allergies: No Past Medical History Surgeries: Yes (DENTAL) Respiratory: Yes Asthma Cardiac: No Neurological: No Reproductive Disorders: No Sexually Transmitted Disease: No HIV/AIDS: No Genitourinary: No Gastrointestinal: No Musculoskeletal: No Endocrine: No HEENT: No Cancer: No Psychosocial: Yes ADD/ADHD, Anxiety, Depression Integumentary: No Blood Disorders: No Adverse Reaction/Blood Tranf: No Family Medical History Cardiovascular disease No Pertinent Family Hx Physical Exam Vital Signs Vital Signs - First Documented 02/23/22 01:47 Temp 36.0 Pulse 123 Resp 18 B/P (MAP) 133/86 (102) Pulse Ox 100 O2 Delivery Room Air Capillary Refill : Less Than 3 Seconds Height, Weight, BMI Height: 5'5" Weight: 220lbs. oz. 99.000595qz; 34.00 BMI Method:Stated General Appearance: WD/WN, no apparent distress HEENT: PERRL/EOMI, normal ENT inspection, pharynx normal Neck: non-tender, full range of motion, supple, normal inspection Cardiovascular: regular rate, rhythm, no edema, no murmur Respiratory: chest non-tender, lungs clear, normal breath sounds, no respiratory distress, no accessory muscle use Gastrointestinal: normal bowel sounds, non tender, soft, other (thrombosed external hemorrhoids) Back: normal inspection Feet: left foot other (Tender along the fifth metatarsal on the left with swelling and bruising) Neurologic/Tendon: normal sensation, normal motor functions, normal tendon functions Neurologic/Psychiatric: no motor/sensory deficits, alert, normal mood/affect Skin: normal color, warm/dry Lymphatic: no adenopathy Procedures/Interventions Splinting and Joint Reduction : Splint Application: Short Leg (Ortho-Glass was used with a single posterior slab. Cotton web roll was applied beforehand, and Saurabh bandage afterwards. Patient tolerated the procedure well. Neurovascularly intact before and afterwards) Progress/Results/Core Measures Results/Orders Vital Signs/I&O 02/23/22 01:47 Temp 36.0 Pulse 123 Resp 18 B/P (MAP) 133/86 (102) Pulse Ox 100 O2 Delivery Room Air Blood Pressure Mean: 102 Progress Progress Note : Progress Note 26-year-old female coming in because her splint got wet. ABCs were intact and vitals were stable on presentation. I did apply a new splint and discussed not getting it wet. She has an Ortho already to follow-up with. I then evaluated her hemorrhoids which do appear thrombosed. I offered to excise the thrombosis, and she would like to defer that at this time. I believe she is stable for discharge with outpatient follow-up. She was sent home with strict return precautions Departure Impression Primary Impression: Lopez fracture Qualified Codes: S99.192D - Other physeal fracture of left metatarsal, subsequent encounter for fracture with routine healing Additional Impression: Thrombosed hemorrhoids Disposition: HOME, SELF-CARE Condition: Stable Departure-Patient Inst. Decision time for Depature: 02:10 Referrals: REZA WHITE MD (PCP/Family) Primary Care Physician Patient Instructions: Splint Care ED, Hemorrhoids (DC) Add. Discharge Instructions: You can follow-up with your OB about your hemorrhoids to see if there is anything he would do. Otherwise do not get your splint wet, and you can take the hydrocodone as needed for pain. Scripts Hydrocodone Bit/Acetaminophen (HYDROcodone/APAP 5 MG/325 MG TAB) 1 Tab Tab 1 TAB PO Q6H for Pain for 3 Days, #12 TAB 0 Refills Prov: RITA FORTUNE MD 02/23/22 Work/School Note: Work Release Form Date Seen in the Emergency Department: February 23, 2022 Return to Work: February 24, 2022 Restrictions: No Restrictions RITA FORTUNE MD February 23, 2022 02:12
[2022-02-23] MEDS ORDERED: HYDROcodone/APAP 5 MG/325 MG (LORTAB) TAB PO ONE (02:15)
== END 2022-02-23 02:19 | disposition home or self-care (01) ==
LOC: EDUNIT# 01:51 → ER FS 01:53
DX: O9A.213 Injury, poisoning and certain other consequences of external causes complicating pregnancy, third trimester (principal); S99.192D Other physeal fracture of left metatarsal, subsequent encounter for fracture with routine healing; O22.43 Hemorrhoids in pregnancy, third trimester; Z3A.00 Weeks of gestation of pregnancy not specified; X58.XXXD Exposure to other specified factors, subsequent encounter
CPT/HCPCS: 29515

== ENCOUNTER 2022-11-04 19:56 | Emergency (ER) | payer BC, MEDICAID ==
[~2022-11-04 19:56] MED LIST changes: +LABE200T10 PO; -LABE200T7 PO
[2022-11-04 20:05] VITALS: BP 132/69
--- NOTE | 2022-11-04 20:09 | ED General ---
General Chief Complaint: Substance Abuse Stated Complaint: OVERDOSE Source of Information: EMS, Old Records Exam Limitations: Other (PT IS REFUSING TO ANSWER QUESTIONS, AND REFUSING ALL CARE) History of Present Illness Date Seen by Provider: Nov 04, 2022 Time Seen by Provider: 19:56 Initial Comments PT ARRIVES VIA EMS PT SMOKED CRUSHED UP FENTANYL PILLS FRIENDS / PEOPLE AT [facility] GAVE PT NARCAN, AFTER THEY REALIZED THAT THEY HAD NOT SEEN HER FOR AT LEAST 10 MINUTES AND CALLED 911 [place] [employer] ARRIVED AND FOUND PT PULSELESS AND APNEIC, AND PALE AND BEGAN CPR [facility] ARRIVED, AED PLACED, AND NO SHOCK ADVISED WHEN EMS ARRIVED, PT WAS BREATHING ON HER OWN AND HAD A PULSE PT "WOKE UP" ENROUTE AND TOLD EMS SHE WAS REFUSING TREATMENT. ON ARRIVAL HERE, PT IS AWAKE, AND TALKING REPEATING "I WANT MY SON" PT REFUSES TO STATE HER NAME OR OR ADDRESS OR PHONE NUMBER SHE REFUSES TO ANSWER ANY QUESTIONS SHE REFUSES ALL CARE, AND REFUSES TO ALLOW ANY STAFF TO TOUCH HER PT IS EXTREMELY ARGUMENTATIVE IN ALL ASPECTS FROM TIME ARRIVAL--REPEATS "I'M NOT SAYING ANYTHING UNTIL I SEE MY SON" AND REPEATS FROM TIME ARRIVAL THAT SHE WANTS TO LEAVE. MULTIPLE ATTEMPTS TO ENCOURAGE PT TO AGREE TO CARE, BY EMS AND ALL STAFF MEMBERS, AND SHE CONTINUES TO REFUSE ANY AND ALL CARE AND REFUSES TO ANSWER ANY QUESTIONS. PT'S NAME AND WERE OBTAIN FROM [facility]. Allergies and Home Medications Allergies Coded Allergies: No Known Drug Allergies (Unverified , 02/16/13) Patient Home Medication List Home Medication List Reviewed: Yes Amoxicillin/Potassium Clav (Amox Tr-K Clv 875-125 mg Tab) 875 Mg-125 Mg Tablet, 1 EACH PO BID Prescribed by: JEFFREY BAUMANN on 01/28/22 0538 Docusate Sodium (Dok) 100 Mg Capsule, 100 MG PO BID Prescribed by: EMILY CORDOVA on 12/29/20 0747 Ferrous Sulfate (Iron) 325 Mg Tablet, 325 MG PO DAILY, (Reported) Entered as Reported by: JOEY SIDDIQI on 12/22/202048 Hydrocodone Bit/Acetaminophen (HYDROcodone/APAP 5 MG/325 MG TAB) 1 Tab Tab, 1 TAB PO Q6H Prescribed by: RITA FORTUNE on 02/23/22 0211 Hydrocodone/Acetaminophen (Hydrocodone-Acetamin 5-325 mg) 5 Mg-325 Mg Tablet, 1 TAB PO Q4H PRN for PAIN-SEVERE (8-10) Prescribed by: JEFFREY BAUMANN on 01/28/22 0538 Ibuprofen (Ibuprofen) 800 Mg Tablet, 800 MG PO Q6H Prescribed by: EMILY CORDOVA on 12/29/20 0747 Labetalol HCl (Labetalol HCl) 200 Mg Tablet, 100 MG PO BID Prescribed by: EMILY CORDOVA on 12/29/20 0747 Oxycodone HCl/Acetaminophen (Percocet 10-325 mg Tablet) 1 Each Tablet, 1 TAB PO Q4HR PRN for PAIN-MODERATE (5-7) Prescribed by: EMILY CORDOVA on 12/29/20 0747 Vit No.124/Iron/FA ( Vitamin Tablet) 1 Each Tablet, 1 EACH PO DAILY, (Reported) Entered as Reported by: JOEY SIDDIQI on 12/22/202048 Review of Systems Review of Systems Constitutional: other (UNABLE TO OBTAIN FROM PT) Psychiatric/Neurological: See HPI Past Hnqnlfa-Vcpjka-Pdeiqy Hx Patient Social History Substance use?: Yes Substance type: Amphetamines, Methamphetamine, Misuse of prescript meds, Other Additional substance use comme: 11/04/22--OD'D DUE TO SMOKING FENTANYL, REQUIRED NARCAN AT [facility]. Immunizations Up To Date Tetanus Booster (TDap): Less than 5yrs Seasonal Allergies Seasonal Allergies: No Past Medical History Surgeries: Yes (DENTAL) Respiratory: Yes Asthma Cardiac: No Neurological: No Reproductive Disorders: No Sexually Transmitted Disease: No HIV/AIDS: No Genitourinary: No Gastrointestinal: No Musculoskeletal: No Endocrine: No HEENT: No Cancer: No Psychosocial: Yes ADD/ADHD, Anxiety, Depression Integumentary: No Blood Disorders: No Adverse Reaction/Blood Tranf: No Family Medical History Cardiovascular disease No Pertinent Family Hx Physical Exam Vital Signs Vital Signs - First Documented Capillary Refill : Height, Weight, BMI Height: 5'5" Weight: 220lbs. oz. 99.759052ui; 34.00 BMI Method:Stated General Appearance: Other (PT IS AWAKE, AND TALKING, BUT REPEATING "I WANT MY SON" AND IS WANTING TO LEAVE ON ARRIVAL. SHE REFUSES TO ALLOW ANYONE TO TOUCH HER. PT IS REFUSING TO ANSWER ANY QUESTIONS. ) Progress/Results/Core Measures Suspected Sepsis SIRS Temperature: Pulse: Respiratory Rate: Blood Pressure / Mean: Results/Orders Vital Signs/I&O 11/04/22 11/04/22 20:05 20:05 B/P (MAP) 132/69 132/69 (90) Capillary Refill : Progress Note : Progress Note WERE ABLE TO OBTAIN A SET OF VITAL SIGNS, AND ARE STABLE PT IS AWAKE AND TALKING, CRYING/BLUBBERING, SPEECH IS SLIGHTLY SLURRED AFTER MUCH ARGUING BY PT, AND AFTER REPEATED ATTEMPTS BY ALL STAFF TO ENCOURAGE PT TO ALLOW TREATMENT, SHE REPEATEDLY REFUSES AND STATES SHE IS LEAVING 2004--PT IS SIGNING OUT AMA. PT IS ABLE TO WALK ON HER OWN. RISKS, INCLUDING , WELL BENEFITS, WERE EXPLAINED TO PATIENT, AND SHE CONTINUES TO REFUSE TREATMENT OF ANY KIND REVIEWED OLD RECORDS, INCLUDING ER VISITS, ADMITS, H&P'S, TESTS/PROCEDURES/DELIVERY RECORD FROM 01/2021 AND DISCHARGE SUMMARIES. PT TESTED + FOR METHAMPHETAMINES AT TIME OF IN DECEMBER 2020. Departure Impression Primary Impression: Left against medical advice Additional Impressions: Illicit drug use Drug overdose Disposition: AGAINST MEDICAL ADVICE Condition: Against Medical Advice Departure-Patient Inst. Referrals: REZA WHITE MD (PCP/Family) Primary Care Physician JOLANTA SULLIVAN DO Nov 04, 2022 20:09
== END 2022-11-04 20:10 | disposition left against medical advice (07) ==
LOC: ER 19:56 → EDUNIT# 19:56 → ER 20:10
DX: R47.81 Slurred speech (principal); T50.7X1A Poisoning by analeptics and opioid receptor antagonists, accidental (unintentional), initial encounter; F19.90 Other psychoactive substance use, unspecified, uncomplicated
CPT/HCPCS: 99285